=== PATIENT | female | born 1980 | race Native Hawaiian/Other Pacific Islander ===

== ENCOUNTER 2018-07-24 23:08 | Outpatient (CLI) | payer OTHER | END 2018-07-24 23:21 | disposition short-term general hospital (02) | LOC: AMB 23:08 | DX: R60.0 Localized edema (principal) | CPT/HCPCS: A0425; A0429 ==

== ENCOUNTER 2018-07-24 23:36 | Emergency (ER) | payer OTHER ==
[~2018-07-24] VITALS: Ht 157.5 cm; Wt 63.5 kg
[2018-07-25 00:29] VITALS: BP 142/78; TEMP 98.3
== END 2018-07-25 00:31 | disposition home or self-care (01) ==
LOC: ED 23:36
DX: L03.116 Cellulitis of left lower limb (principal); L03.115 Cellulitis of right lower limb; R23.8 Other skin changes
CPT/HCPCS: 99283